=== PATIENT | male | born 1955 | race Caucasian/White ===

== ENCOUNTER 2016-05-13 02:32 | Emergency (ER) | payer MEDICAID ==
[~2016-05-13 02:32] MED LIST: ADVAIR; ADVAIR 25028 BLISTE1 INH; ALBUTEROL SULF8.5 G1 INH; ALBUTEROL1.25 MG/3 INH; ALBUTEROL17 GM INH; ALBUTEROL2.5 MG/0.1 IH; ALBUTEROL2.5 MG/3 M INH; AMOXICILLIN500 MG PO; AMOXIL500 MG PO; ATIVAN1 M2 PO; AUGMENTIN875 MG PO; BISOPROLOL FUMAR5 MG PO; CARAFATE1 GM/10 M1 PO; CO GESIC PO; COMBIVENT RESPIM4 G1 INH; COREG12.5 MG PO; COREG6.25 MG; CYCLOBENZAPRINE10 M1 PO; DELTASONE20 MG PO; DOXYCYCLINE HY100 M3 PO; EPIVIR HBV100 M1 PO; EPIVIR HBV100 MG; EPIVIR HBV100 MG PO; ESKALITH300 MG; ESKALITH300 MG PO; FLEXERIL10 MG PO; IBUPROFEN600 M1 PO; IMDUR30 MG PO; INVEGA; INVEGA3 MG/BOTTL; LEVAQUIN500 M1 PO; LEVAQUIN750 M1 PO; LITHIUM CARBON300 M PO; LITHIUM CARBON300 M1 PO; LITHIUM CARBON600 MG PO; MEDROL DOSE PACK; MUCINEX600 M1 PO; NORCO 10/325 TA1 TAB PO; NORCO 10/3251 TAB PO; NORCO 5-325 TA1 EACH PO; NORCO 5/325 TAB1 TAB PO; NORCO 5/3251 TAB PO; PERCOCET 5-3251 EACH PO; PERCOCET 5/3251 TAB PO; PREDNISONE10 M1 PO; PREDNISONE20 M1 PO; PREVACID30 M1 PO; PREVACID30 M3 PO; PREVACID30 MG; PREVACID30 MG PO; PROAIR HFA8.5 GM IH; PROMETH-CODEIN 65 ML PO; PROZAC10 M1 PO; REPREXAIN PO; SKELAXIN800 MG PO; SYMBICORT 160-1 PUFF INH; TRAMADOL HCL E100 M1 PO; VALIUM10 M1 PO; VALIUM10 MG PO; XANAX1 MG; ZEBETA5 MG PO; ZITHROMAX1 G/PKT PO; ZYPREXA5 M1 PO
[2016-09-29] MEDS ORDERED: LITHIUM CA300 MG/TAB PO (21:46)
[2016-09-29] MEDS ORDERED: ZOFRAN4 M2 PO (23:27)
[2016-09-29] MEDS ORDERED: BENTYL10 M1 PO (23:27)
== END 2016-05-13 05:23 ==
LOC: EDMED 02:32
DX: M54.2 Cervicalgia (principal); G89.29 Other chronic pain; R51 Headache; I11.9 Hypertensive heart disease without heart failure; I25.10 Atherosclerotic heart disease of native coronary artery without angina pectoris; J44.9 Chronic obstructive pulmonary disease, unspecified; F31.9 Bipolar disorder, unspecified; B19.10 Unspecified viral hepatitis B without hepatic coma; Z85.47 Personal history of malignant neoplasm of testis; Z90.79 Acquired absence of other genital organ(s); Z79.51 Long term (current) use of inhaled steroids; Z79.899 Other long term (current) drug therapy
CPT/HCPCS: J1200; J1885; J2060; J2405; J2765

== ENCOUNTER 2016-06-06 15:14 | Observation (INO) | payer MEDICAID ==
[2016-06-06 15:33] LABS: BASO ABSOLUTE COUNT 0.1 tho/cmm (0.0-0.2); EOS % 4.4 % (0-7); EOSINOPHIL ABSOLUTE COUNT 0.4 tho/cmm (0.0-0.7); HCT-HEMATOCRIT 43.6 % (36.0-53.5); HGB-HEMOGLOBIN 14.9 gm/dl (13.5-17.0); IMMATURE GRANULOCYTES ABSOLUTE 0.01 tho/cmm (0-0.03); IMMATURE GRANULOCYTES PERCENT 0.1 % (0-0.3); LYMPH % 18.6 % (20-45); LYMPH ABSOLUTE COUNT 1.6 tho/cmm (0.8-4.5); MCH (MEAN CORPUSCULAR HGB) 30.1 pg (28.0-32.0); MCHC MEAN CORPUSCULAR HGB CONC 34.2 % (32.0-36.0); MCV (MEAN CELL VOLUME) 88.1 fl (82.0-96.0); MEAN PLATELET VOLUME 11.3 cmc (9.4-12.4); MONO % 9.3 % (0-12); MONOCYTE ABSOLUTE COUNT 0.8 tho/cmm (0.0-1.2); NEUTROPHIL ABSOLUTE COUNT 5.7 tho/cmm (1.6-8.0); NEUTROPHIL-AUTOMATED 5.7 tho/cmm (1.6-8.0); NEUTROPHILS % 66.6 % (40-80); PLATELET COUNT 165 tho/cmm (150-450); RED BLOOD COUNT 4.95 mil/cmm (4.40-5.70); RED CELL DISTRIBUTION WIDTH 12.8 % (12.4-16.4); WHITE BLOOD COUNT 8.6 tho/cmm (4.0-10.0)
[2016-06-06 15:48] LABS: ALB/GLOB RATIO 1.1 (0.8-2.0); ALBUMIN 4.1 g/dl (3.5-5.0); ALKALINE PHOSPHATASE 79 U/L (33-138); ALT/SGPT 26 U/L (12-78); ANION GAP 9 mmol/L (0-20); AST/SGOT 19 U/L (10-40); BILIRUBIN,DIRECT 0.2 mg/dl (0.0-0.3); BILIRUBIN,INDIRECT 0.4 mg/dL (0.0-1.0); BILIRUBIN,TOTAL 0.6 mg/dl (0.0-1.5); BLOOD UREA NITROGEN 21 mg/dl (6-24); CARBON DIOXIDE-VENOUS 29 mmol/L (22-32); CHLORIDE 111 mmol/l (96-110); CREATININE 1.09 mg/dl (0.60-1.30); GLUCOSE 103 mg/dL (70-110); LIPASE 54 U/L (73-393); POTASSIUM 3.5 mmol/L (3.7-5.1); SODIUM 145 mmol/L (135-145); eGFR VALUE FOR BLACK 86 mL/Min
[2016-06-07] MEDS ORDERED: NORVASC2.5 M1 PO (11:14)
[2016-09-29] MEDS ORDERED: LITHIUM CA300 MG/TAB PO (21:46)
[2016-09-29] MEDS ORDERED: BENTYL10 M1 PO (23:27)
[2016-09-29] MEDS ORDERED: ZOFRAN4 M2 PO (23:27)
== END 2016-06-07 13:05 ==
LOC: EDMED 15:14 → EMR2 17:19 → CAR1 21:26
PROVIDERS: Emergency Medicine; ADMIT Internal Medicine Cardiovascular Disease
DX: R07.9 Chest pain, unspecified (principal); F12.90 Cannabis use, unspecified, uncomplicated; F31.9 Bipolar disorder, unspecified; J44.9 Chronic obstructive pulmonary disease, unspecified; Z79.899 Other long term (current) drug therapy; Z88.1 Allergy status to other antibiotic agents; Z87.891 Personal history of nicotine dependence; Z86.19 Personal history of other infectious and parasitic diseases; Z82.49 Family history of ischemic heart disease and other diseases of the circulatory system; Z98.890 Other specified postprocedural states
CPT/HCPCS: A9500; G0378; J1885; J2175; J2785; J7030

== ENCOUNTER 2016-07-01 00:03 | Emergency (ER) | payer MEDICAID ==
[~2016-07-01 00:03] MED LIST changes: +NORVASC2.5 M1 PO
[2016-07-01] MEDS ORDERED: SYMBICORT 160-1 PUFF INH (00:15)
[2016-07-01 01:06] LABS: BASO % 1.1 % (0-2); BASO ABSOLUTE COUNT 0.1 tho/cmm (0.0-0.2); EOSINOPHIL ABSOLUTE COUNT 0.4 tho/cmm (0.0-0.7); HGB-HEMOGLOBIN 13.7 gm/dl (13.5-17.0); IMMATURE GRANULOCYTES ABSOLUTE 0.02 tho/cmm (0-0.03); IMMATURE GRANULOCYTES PERCENT 0.4 % (0-0.3); LYMPH % 24.7 % (20-45); LYMPH ABSOLUTE COUNT 1.3 tho/cmm (0.8-4.5); MCHC MEAN CORPUSCULAR HGB CONC 34.3 % (32.0-36.0); MCV (MEAN CELL VOLUME) 87.5 fl (82.0-96.0); MEAN PLATELET VOLUME 11.1 cmc (9.4-12.4); MONO % 8.7 % (0-12); MONOCYTE ABSOLUTE COUNT 0.5 tho/cmm (0.0-1.2); NEUTROPHIL ABSOLUTE COUNT 3.1 tho/cmm (1.6-8.0); NEUTROPHIL-AUTOMATED 3.1 tho/cmm (1.6-8.0); NEUTROPHILS % 58.1 % (40-80); PLATELET COUNT 166 tho/cmm (150-450); RED BLOOD COUNT 4.57 mil/cmm (4.40-5.70); RED CELL DISTRIBUTION WIDTH 13.6 % (12.4-16.4); WHITE BLOOD COUNT 5.3 tho/cmm (4.0-10.0)
[2016-07-01 01:08] LABS: PROTHROMBIN TIME 12.1 SECONDS (9.0-13.6)
[2016-07-01 01:21] LABS: ALB/GLOB RATIO 1.1 (0.8-2.0); ALBUMIN 3.9 g/dl (3.5-5.0); ALCOHOL (ETOH) <10 mg/dl (<10); ALKALINE PHOSPHATASE 76 U/L (33-138); ALT/SGPT 22 U/L (12-78); ANION GAP 13 mmol/L (0-20); AST/SGOT 16 U/L (10-40); BILIRUBIN,TOTAL 0.3 mg/dl (0.0-1.5); BLOOD UREA NITROGEN 14 mg/dl (6-24); CALCIUM 8.6 mg/dl (8.5-10.5); CARBON DIOXIDE-VENOUS 29 mmol/L (22-32); CHLORIDE 109 mmol/l (96-110); CREATININE 0.92 mg/dl (0.60-1.30); GLUCOSE 95 mg/dL (70-110); MAGNESIUM 1.9 mg/dl (1.8-2.6); POTASSIUM 3.6 mmol/L (3.7-5.1); SODIUM 147 mmol/L (135-145); eGFR VALUE FOR BLACK >90 mL/Min
[2016-09-29] MEDS ORDERED: LITHIUM CA300 MG/TAB PO (21:46)
[2016-09-29] MEDS ORDERED: ZOFRAN4 M2 PO (23:27)
[2016-09-29] MEDS ORDERED: BENTYL10 M1 PO (23:27)
== END 2016-07-01 06:00 ==
LOC: EDMED 00:03
PROVIDERS: Family Medicine
DX: I10 Essential (primary) hypertension (principal); R11.2 Nausea with vomiting, unspecified; F41.9 Anxiety disorder, unspecified; Z87.891 Personal history of nicotine dependence; Z79.82 Long term (current) use of aspirin; Z79.899 Other long term (current) drug therapy; Z87.442 Personal history of urinary calculi
CPT/HCPCS: G0480; J0360; J1885; J2405; J3010

== ENCOUNTER 2016-07-28 17:48 | Observation (INO) | payer MEDICAID ==
[2016-07-28] MEDS ORDERED: VALIUM10 M1 PO (17:59)
[2016-07-28 18:44] LABS: BASO % 0.7 % (0-2); BASO ABSOLUTE COUNT 0.1 tho/cmm (0.0-0.2); EOS % 5.2 % (0-7); EOSINOPHIL ABSOLUTE COUNT 0.4 tho/cmm (0.0-0.7); HGB-HEMOGLOBIN 13.2 gm/dl (13.5-17.0); IMMATURE GRANULOCYTES ABSOLUTE 0.01 tho/cmm (0-0.03); IMMATURE GRANULOCYTES PERCENT 0.1 % (0-0.3); LYMPH % 13.7 % (20-45); MCH (MEAN CORPUSCULAR HGB) 29.6 pg (28.0-32.0); MCHC MEAN CORPUSCULAR HGB CONC 33.8 % (32.0-36.0); MCV (MEAN CELL VOLUME) 87.4 fl (82.0-96.0); MEAN PLATELET VOLUME 10.5 cmc (9.4-12.4); MONO % 4.1 % (0-12); MONOCYTE ABSOLUTE COUNT 0.3 tho/cmm (0.0-1.2); NEUTROPHIL ABSOLUTE COUNT 5.5 tho/cmm (1.6-8.0); NEUTROPHIL-AUTOMATED 5.5 tho/cmm (1.6-8.0); NEUTROPHILS % 76.2 % (40-80); PLATELET COUNT 186 tho/cmm (150-450); RED BLOOD COUNT 4.46 mil/cmm (4.40-5.70); RED CELL DISTRIBUTION WIDTH 13.6 % (12.4-16.4); WHITE BLOOD COUNT 7.2 tho/cmm (4.0-10.0)
[2016-07-28 19:01] LABS: ALB/GLOB RATIO 1.3 (0.8-2.0); ALKALINE PHOSPHATASE 78 U/L (33-138); ALT/SGPT 35 U/L (12-78); ANION GAP 12 mmol/L (0-20); AST/SGOT 24 U/L (10-40); BILIRUBIN,TOTAL 0.3 mg/dl (0.0-1.5); BLOOD UREA NITROGEN 26 mg/dl (6-24); CALCIUM 8.8 mg/dl (8.5-10.5); CARBON DIOXIDE-VENOUS 28 mmol/L (22-32); CHLORIDE 110 mmol/l (96-110); CREATININE 1.32 mg/dl (0.60-1.30); GLUCOSE 75 mg/dL (70-110); POTASSIUM 4.6 mmol/L (3.7-5.1); SODIUM 145 mmol/L (135-145); eGFR VALUE FOR BLACK 68 mL/Min
[2016-07-29 02:28] LABS: ANION GAP 13 mmol/L (0-20); BLOOD UREA NITROGEN 22 mg/dl (6-24); CALCIUM 8.4 mg/dl (8.5-10.5); CARBON DIOXIDE-VENOUS 27 mmol/L (22-32); CHLORIDE 110 mmol/l (96-110); CREATININE 1.15 mg/dl (0.60-1.30); GLUCOSE 107 mg/dL (70-110); POTASSIUM 4.2 mmol/L (3.7-5.1); SODIUM 146 mmol/L (135-145); eGFR VALUE FOR BLACK 80 mL/Min
[2016-07-29] MEDS ORDERED: CELEBREX200 M1 PO (09:09)
[2016-09-29] MEDS ORDERED: LITHIUM CA300 MG/TAB PO (21:46)
[2016-09-29] MEDS ORDERED: ZOFRAN4 M2 PO (23:27)
[2016-09-29] MEDS ORDERED: BENTYL10 M1 PO (23:27)
== END 2016-07-29 12:23 ==
LOC: EDMED 17:48 → EMR2 22:33 → CAR1 22:55
PROVIDERS: Emergency Medicine; Nurse Practitioner Family; ADMIT Internal Medicine Cardiovascular Disease
DX: R07.89 Other chest pain (principal); G89.29 Other chronic pain; M79.602 Pain in left arm; R51 Headache; I10 Essential (primary) hypertension; J44.9 Chronic obstructive pulmonary disease, unspecified; J45.909 Unspecified asthma, uncomplicated; F31.9 Bipolar disorder, unspecified; M25.561 Pain in right knee; M25.522 Pain in left elbow; F41.9 Anxiety disorder, unspecified; Z79.899 Other long term (current) drug therapy; Z88.1 Allergy status to other antibiotic agents; Z87.891 Personal history of nicotine dependence; Z82.49 Family history of ischemic heart disease and other diseases of the circulatory system; Z85.05 Personal history of malignant neoplasm of liver; Z85.47 Personal history of malignant neoplasm of testis; Z86.19 Personal history of other infectious and parasitic diseases; Z86.73 Personal history of transient ischemic attack (TIA), and cerebral infarction without residual deficits; Z90.79 Acquired absence of other genital organ(s); Z98.890 Other specified postprocedural states
CPT/HCPCS: G0378; J2270; J7030